=== PATIENT | female | born 1930 | race Caucasian/White ===

== ENCOUNTER 2018-06-08 13:52 | Inpatient (IN) | payer MEDICARE, BC ==
[~2018-06-08] VITALS: Ht 167.6 cm; Wt 58.1 kg
[2018-06-08] MEDS ORDERED: ALENDRONATE SOD35 MG PO (15:10)
[2018-06-08] MEDS ORDERED: DILANTIN100 MG PO ×2 (15:13→15:15)
[2018-06-08] MEDS ORDERED: TENORMIN25 MG PO (15:20)
[2018-06-08] MEDS ORDERED: ZOCOR20 MG PO (15:20)
[2018-06-08] MEDS ORDERED: THERMOTABS 1 GM1 GM PO (15:21)
[2018-06-08] MEDS ORDERED: SENNA LAXATIVE8.6 MG PO (15:22)
[2018-06-08] MEDS ORDERED: HYDROCODON-ACE1 EA10 PO (15:22)
[2018-06-08] MEDS ORDERED: AGGRENOX 200/251 CAP PO (15:24)
[2018-06-08] MEDS ORDERED: LEXAPRO20 MG PO (15:28)
[2018-06-08] MEDS ORDERED: CYCLOSPORINE EACH EYE (15:28)
[2018-06-08] MEDS ORDERED: MECLIZINE HCL12.5 MG PO (15:28)
[2018-06-08] MEDS ORDERED: GERITOL TONIC PO (15:31)
[2018-06-08 16:19] LABS: BASOPHILS 0.4 % (0-2); EOSINOPHILS 10.9 % (0-7); HEMATOCRIT 39.8 % (36.0-48.0); HEMOGLOBIN 13.5 g/dL (12-16); IMMATURE GRANULOCYTES 0.2 % (0-5); LYMPHOCYTES 23.8 % (15-50); MCH 33.9 pg (26.0-34.0); MCHC 33.9 g/dL (31.0-37.0); MONOCYTES 12.3 % (2-11); NEUTROPHILS 52.4 % (40-80); PLATELET COUNT 239 10x3/uL (130-400); RBC 3.98 10x6/uL (4.00-5.40); RDW 12.8 % (11.5-14.5); WBC 4.9 10x3/uL (4.8-10.8)
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
[2018-06-08 16:39] LABS: ALBUMIN 3.2 g/dL (3.4-5.0); ALKALINE PHOSPHATASE 143 U/L (46-116); ALT (SGPT) 17 U/L (10-68); BILIRUBIN - TOTAL 0.19 mg/dL (0.2-1.3); CALC OSMOLALITY 265 mosm/kg (275-300); CALCIUM 7.8 mg/dL (8.5-10.1); CHLORIDE - SERUM 99 mmol/L (98-107); CHOL - HDL RATIO 2.3 ratio (2.3-4.1); CHOLESTEROL, TOTAL 179 mg/dL (0-200); CREATININE - SERUM 0.7 mg/dL (0.6-1.3); GLUCOSE 100 mg/dL (74-106); HDL CHOLESTEROL 77 mg/dL (32-96); LDL CHOLESTEROL 92 mg/dL (0-100); LDL-HDL RATIO 1.2 ratio (1.5-3.5); PHENYTOIN (DILANTIN) 8.8 ug/mL (10.0-20.0); POTASSIUM - SERUM 3.9 mmol/L (3.5-5.1); PROTEIN - SERUM 6.7 g/dL (6.4-8.2); SODIUM 133 mmol/L (136-145); THYROID STIMULATING HORMONE 2.91 uIU/mL (0.36-3.74); TRIGLYCERIDE 52 mg/dL (30-200); UREA NITROGEN 12 mg/dL (7-18); eGFR NON AFRICAN AMERICAN 84 mL/min (90-120)
[2018-06-08 17:29] LABS: APPEARANCE CLEAR (CLEAR); BILIRUBIN NEGATIVE (NEGATIVE); COLOR YELLOW (YELLOW); GLUCOSE NEGATIVE (NEGATIVE); KETONE NEGATIVE (NEGATIVE); NITRITE NEGATIVE (NEGATIVE); PROTEIN TRACE mg/dL (NEGATIVE); UROBILINOGEN NORMAL (NORMAL)
--- NOTE | 2018-06-08 18:00 | NUR ---
VERY PLEASANT AND COOPERATIVE WITH STAFF AND PEERS.NO SIGNS OF AGGRESSION.LEFT JAW AND CHEEK HAVE VERY LARGE YELLOW AND PURPLISH BRUISING,LEFT BREAST COVERED IN DARK,PURPLISH BRUISING.LEFT ELBOW HAS SMALL PURPLISH BRUISE AND SMALL SCAB.WHEN QUESTIONED HOW SHE GOT ALL THESE BRUISES SHE REPORTS SHE DOES NOT KNOW.DENIES REMEMBERING PUTTING HAND ON ROOMMATES FACE OR FALLING ON FLOOR.WILL INITIATE PLAN OF CARE,MONITOR FOR CHANGES AND SAFETY.
[2018-06-08 20:36] VITALS: BP 140/70
--- NOTE | 2018-06-08 21:37 | NUR ---
PATIENT GIVEN PRN NORCO 10 FOR BACK PAIN 8 OF 10, AT 2130.
--- NOTE | 2018-06-09 01:37 | NUR ---
B) Patient is alert and oriented to person and place, complained of back pain I) Administered scheduled medications as ordered, monitored for behaviors, R) Mediation compliant, no behaviors noted, P) Continue plan of care.
[2018-06-09 03:57] VITALS: BP 140/70
[2018-06-09 09:20] VITALS: BP 127/65
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
--- NOTE | 2018-06-09 17:40 | NUR ---
The patient said "I didn't get a dinner roll." Asked her if she would like one. She said she would. Staff also gave her one that another patient did not want and she said "This is half eaten." Staff tried to explain that it is smashed in and looks different, but it is whole." She started to argue, but staff just said "OK."
--- NOTE | 2018-06-09 18:35 | NUR ---
The dinner roll came after the patient came. Stated to the patient that the dinner roll is here she ordered and she said "I didn't ask for one, I just said I didn't get one." She took the roll.
[2018-06-09 19:31] VITALS: BP 110/56
--- NOTE | 2018-06-09 20:58 | NUR ---
PATIENT IS CALM, STAYS TO HERSELF, SOMEWHAT FORGETFUL, HAS TO BE SHOWN TO HER ROOM, COMPLIANT WITH MEDS, NO ADVERSE SIDE EFFECTS. WILL FOLLOW POC
[2018-06-10 06:14] LABS: VITAMIN D 25 HYDROXY 9.6 ng/mL (30.0-100.0)
[2018-06-10 07:24] LABS: RAPID PLASMA REAGIN Non Reactive (Non Reactive)
[2018-06-10 08:12] VITALS: BP 107/74
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
[2018-06-10 20:22] VITALS: BP 134/73
[2018-06-11 07:00] VITALS: BP 143/84
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
[2018-06-11 19:26] VITALS: BP 144/67
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
[2018-06-12 07:00] VITALS: BP 148/87
--- NOTE | 2018-06-12 07:30 | NUR ---
PT ALERT X 3 WITH SOME CONFUSION NOTED. PT CALM AND COOPERATIVE WITH ASSESSMENT. REDIRECT AND REORIENT NEEDED. NO AGGRESSION NOTED. PRESCRIBED MEDS PROVIDED. MED COMPLIANT. FALL PRECAUTIONS IN PLACE. WILL CONTINUE TO MONITOR Q 15 MINUTES FOR SAFETY. WILL CPOC.
[2018-06-12 10:48] VITALS: Ht 167.6 cm; Wt 58.1 kg
--- NOTE | 2018-06-12 14:45 | PN ---
PATIENT:BAILEE MENDOZA MEDICAL RECORD: [id number] LOCATION:[facility] ADMISSION DATE: 06/08/18 PROGRESS NOTE DATE OF SERVICE: 06/11/2018 SUBJECTIVE: The patient's case was discussed with staff. She has no new complaint. OBJECTIVE: The patient denies intent to harm herself or others. She is taking her Aricept. She has no recollection of the events that happened in the [facility]. ASSESSMENT: No change in diagnoses. PLAN: Supportive and educational interventions were made. Long-term prognosis is guarded. TRANSINT:[id number] Voice Confirmation ID: [id number] DOCUMENT ID: [id number] BARBY NICOLE MD at 1445 CC: [id number] DICTATION DATE: 06/11/18 1233 DRY TRANSFER WORKER: 06/11/18 1514 ADM IN [id number] [place] [address]
--- NOTE | 2018-06-12 14:45 | PN ---
PATIENT:BAILEE MENDOZA MEDICAL RECORD: [id number] LOCATION:[facility] ADMISSION DATE: 06/08/18 PROGRESS NOTE DATE OF SERVICE: 06/10/2018 SUBJECTIVE: The patient's case was discussed with staff. She has no new complaint. OBJECTIVE: The patient is denying any thoughts of harming herself or others. She is showing no evidence of agitated or aggressive behavior. She is taking her medicines as prescribed. She has no recollection of the events that transpired prior to admission. ASSESSMENT: No change in diagnoses. PLAN: The patient will be started on Aricept to assist with her cognitive impairment. She will be monitored for clinical changes associated with its use. TRANSINT:[id number] Voice Confirmation ID: [id number] DOCUMENT ID: [id number] BARBY NICOLE MD at 1445 CC: [id number] DICTATION DATE: 06/10/18 1314 GARDENING MANAGER: 06/11/18 0004 ADM IN [id number] [place] [id number]
[2018-06-12 21:16] VITALS: BP 120/50
--- NOTE | 2018-06-13 00:02 | NUR ---
RECEIVED IN PATIENT ROOM. RSTING IN BED WITH EYES OPEN. CALM AND COOPERATIVE WITH CARE AND ASSESSMENT. NO SIGNS OF AGGRESSION. REDIRECT AND REORIENT NEEDED. RESTING IN BED WITH EYES CLOSED AT THIS TIME. CONTINUE PLAN OF CARE.
[2018-06-13 07:00] VITALS: BP 137/78
--- NOTE | 2018-06-13 07:30 | NUR ---
REC'D PT IN HALLWAY WITH PEERS. AWAKE AND ALERT. CALM AND COOPERATIVE WITH ASSESSMENT. REDIRECT AND REORIENT NEEDED. PRESCRIBED MEDS PROVIDED. MED COMPLIANT. NO AGGRESSION NOTED. FALL PRECAUTIONS IN PLACE. WILL CONTINUE TO MONITOR Q 15 MINUTES FOR SAFETY. WILL CPOC.
--- NOTE | 2018-06-13 15:38 | PN ---
PATIENT:BAILEE MENDOZA MEDICAL RECORD: [id number] LOCATION:[facility] ADMISSION DATE: 06/08/18 PROGRESS NOTE DATE OF SERVICE: 06/12/2018 SUBJECTIVE: The patient's case was discussed with staff. She has no new complaint. OBJECTIVE: The patient denies intent to harm herself or others. She is tolerating her medicines well. ASSESSMENT: No change in diagnoses. PLAN: Brief supportive and educational interventions were made. The patient has not been aggressive today. I anticipate she can be discharged soon if this level of improvement continues. TRANSINT:[id number] Voice Confirmation ID: [id number] DOCUMENT ID: [id number] BARBY NICOLE MD at 1538 CC: [id number] DICTATION DATE: 06/12/18 1457 AUTOMOBILE RELOCATION ENGINEER: 06/12/18 1856 ADM IN [id number] [place] [address]
--- NOTE | 2018-06-13 23:51 | NUR ---
RECEIVED IN PATIENT ROOM. RESTING IN BED WITH EYES OPEN. CALM AND COOPERATIVE WITH CARE AND ASSESSMENT. NO SIGNS OF AGGRESSION. REDIRECT AND REORIENT NEEDED. RESTING IN BED WITH EYES CLOSED AT THIS TIME. CONTINUE PLAN OF CARE.
--- NOTE | 2018-06-14 07:30 | NUR ---
REC'D PT IN HALLWAY WITH PEERS. PT CALM AND COOPERATIVE WITH ASSESSMENT. REDIRECT AND REORIENT NEEDED. PRESCRIBED MEDS PROVIDED. MED COMPLIANT. NO AGGRESSION NOTED AT THIS TIME. FALL PRECAUTIONS IN PLACE. WILL CONTINUE TO MONITOR Q 15 MINUTES FOR SAFETY. WILL CPOC.
[2018-06-14 08:23] VITALS: BP 125/71
--- NOTE | 2018-06-14 13:01 | PN ---
PATIENT:BAILEE MENDOZA MEDICAL RECORD: [id number] LOCATION:[facility] ADMISSION DATE: 06/08/18 PROGRESS NOTE DATE OF SERVICE: 06/13/2018 SUBJECTIVE: The patient's case was discussed with staff. She has no new complaint. OBJECTIVE: The patient is in good behavioral control. She has poor insight about her condition. She generally tolerates her medicines well. ASSESSMENT: Senile dementia of the Alzheimer's type with behavioral disturbances. PLAN: Current medicines have been reviewed and will be maintained. She has had no further psychotic symptoms. She has not been aggressive. TRANSINT:[id number] Voice Confirmation ID: [id number] DOCUMENT ID: [id number] BARBY NICOLE MD at 1301 CC: [id number] DICTATION DATE: 06/13/18 1613 GRINDER SET UP OPERATOR CENTERLESS: 06/13/18 1715 ADM IN [id number] [place] [id number]
[2018-06-14 19:50] VITALS: BP 124/63
--- NOTE | 2018-06-15 00:33 | NUR ---
B) Patient is alert and oriented to person, place and time, calm and cooperative with care and assessment, I) Admionistered scheduled medications as ordered, monitored for needs, R) Mediation compliant, pleasant and friendly [facility] staff, P) Continue plan of care.
--- NOTE | 2018-06-15 13:03 | PN ---
PATIENT:BAILEE MENDOZA MEDICAL RECORD: [id number] LOCATION:[facility] ADMISSION DATE: 06/08/18 PROGRESS NOTE DATE OF SERVICE: 06/14/2018 SUBJECTIVE: The patient is in good behavioral control. She is partially oriented. She has pretty limited insight about her situation. She has generally been cooperative. ASSESSMENT: No change in diagnoses. PLAN: Brief supportive and educational interventions were made. Long-term prognosis is guarded. I anticipate the patient can be transitioned out of the hospital soon. TRANSINT:[id number] Voice Confirmation ID: [id number] DOCUMENT ID: [id number] BARBY NICOLE MD at 1303 CC: [id number] DICTATION DATE: 06/14/18 1513 CABIN SERVICE AGENT: 06/15/18 0009 ADM IN [address] [place] [address]
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
[2018-06-15 19:56] VITALS: BP 111/64
--- NOTE | 2018-06-16 04:15 | NUR ---
B) Patient is alert and oriented to person and place, calm and cooperative, no aggression noted, I) Administered scheduled medications as ordered, monitored for safety and for needs, R) Mediation compliant, follow unit rules, P) Continue plan of care.
[2018-06-16 09:48] VITALS: BP 109/70
[2018-06-16 10:37] VITALS: BP 109/70
--- NOTE | 2018-06-16 10:54 | NUR ---
B) The patient is calm and pleasant, she has poor insight into her situation. She uses a walker to ambulate. She does have a faint bruise to the left side of her face, she also has a healing bruise to her left breast and she still has no recollection as to how she got the bruises. I) Provide prescribed meds. R) The patient is compliant with meds and she is interacting with staff and other patients. P) Continue POC.
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
--- NOTE | 2018-06-16 14:11 | NUR ---
Nutrition follow-up: Diet: Regular PO intake 75-100% of meals Labs reviewed Wt: 128# PO intake good at this time. RDN following.
[2018-06-16 20:15] VITALS: BP 122/65
--- NOTE | 2018-06-17 05:22 | NUR ---
B) Patient is alert and oriented X 3, calm and cooperative, pleasant and friendly toward staff, I) Administered scheduled medications as ordered, monitored for needs, R) Medication compliant, pleasant and quiet, P) Continue plan of care.
[2018-06-17 08:12] VITALS: BP 136/92
--- NOTE | 2018-06-17 08:39 | PN ---
PATIENT:BAILEE MENDOZA MEDICAL RECORD: [id number] LOCATION:[facility] ADMISSION DATE: 06/08/18 PROGRESS NOTE DATE OF SERVICE: 06/16/2018 SUBJECTIVE: The patient's case was discussed with staff. She has no new complaint. OBJECTIVE: The patient is in good behavioral control. She has poor insight about her condition. She has tolerated her medicines reasonably well. ASSESSMENT: No change in diagnoses. PLAN: The patient's Aricept is going to be increased to 10 mg at bedtime. She will be monitored for clinical changes associated with its use. Her long-term prognosis is guarded. TRANSINT:[id number] Voice Confirmation ID: [id number] DOCUMENT ID: [id number] BARBY NICOLE MD at 0839 CC: [id number] DICTATION DATE: 06/16/18 1529 PURSE MAKER: 06/16/18 2108 ADM IN [id number] [place] [address]
--- NOTE | 2018-06-17 10:18 | NUR ---
B) The patient is awake and alert, she is ambulating with her walker, she is upset because she says she has a pair of pants missing. She states she wants to go home, she says she is bored. I) Provide prescribed meds. R) The patient is compliant with meds and she has poor insight into her situation. She has not shown any aggression, she denies depression. P) Continue POC.
--- NOTE | 2018-06-17 11:45 | NUR ---
Did take the patient for a walk with four other patients in the hallway. She tolerated it well.
[2018-06-17 20:01] VITALS: BP 120/63
--- NOTE | 2018-06-18 03:59 | NUR ---
B) Patien is alert and oriented X 3, calm and cooperative, ambulates with her walker, social and friendly toward staff and peers, I) Administered scheduled medications as ordered, monitored for safety R) Mediation compliant, pleasant and friendly, follow unit milieu, P) Continue plan of care.
[2018-06-18 08:00] VITALS: BP 117/80
--- NOTE | 2018-06-18 09:45 | NUR ---
The patients feet are edematous 3+ left and 2+ right with pain in the middle of the top of her foot. Had the patient take off her shoes and put on slipper socks and tols her to elevate her feet. She is sitting away from others.
--- NOTE | 2018-06-18 11:00 | NUR ---
REPORT RECEIVED AND CARE ASSUMED. SITTING IN CHAIR WATCHING A MOVIE,
--- NOTE | 2018-06-18 11:37 | PN ---
PATIENT:BAILEE MENDOZA MEDICAL RECORD: [id number] LOCATION:[facility] ADMISSION DATE: 06/08/18 PROGRESS NOTE DATE OF SERVICE: 06/17/2018 SUBJECTIVE: The patient's case was discussed with staff. She has no new complaint. OBJECTIVE: The patient denies intent to harm herself or others. She tolerates her medicines well. Eye contact is fair. ASSESSMENT: No change in diagnoses. PLAN: Brief supportive and educational interventions were made. Long-term prognosis is guarded. TRANSINT:[id number] Voice Confirmation ID: [id number] DOCUMENT ID: [id number] BARBY NICOLE MD at 1137 CC: [id number] DICTATION DATE: 06/17/18 0842 NURSERY TECHNICIAN: 06/17/18 0856 ADM [id number] [place] [address]
[2018-06-18] MEDS ORDERED: Aricept PO (11:47)
[2018-06-18] MEDS ORDERED: Vitamin D PO (11:48)
[2018-06-18] MEDS ORDERED: VITAMIN B-121000 MCG PO (11:48)
[2018-06-18 19:28] VITALS: BP 132/68
--- NOTE | 2018-06-18 22:18 | NUR ---
PATIENT IS AWAKE, ALERT, NO AGGRESSION NOTED, COMPLIANT WITH MEDS, ABLE TO MAKE NEEDS KNOWN, NO ADVERSE REACTION NOTED. WILL FOLLOW POC
--- NOTE | 2018-06-19 13:00 | NUR ---
DISCHARGE PAPERWORK COMPLETED AND BELONGINGS PACKED AND SENT. LEFT [facility].
--- NOTE | 2018-06-19 15:58 | PN ---
PATIENT:BAILEE MENDOZA MEDICAL RECORD: [id number] LOCATION:[facility] ADMISSION DATE: 06/08/18 PROGRESS NOTE DATE OF SERVICE: 06/18/2018 SUBJECTIVE: The patient's case was discussed with staff. She has no new complaint. OBJECTIVE: The patient has no thoughts of harming herself or others. She has a near euthymic mood. She is tolerating her medicines well. ASSESSMENT: Senile dementia of the Alzheimer's type with behavioral disturbances. PLAN: The patient has shown no evidence of aggression and is, in my view, reasonably safe to be returned to the care home. Follow up should be with her primary care physician. Again, there is no evidence of dangerousness and I do not think she represents an acute risk to others. TRANSINT:[id number] Voice Confirmation ID: [id number] DOCUMENT ID: [id number] BARBY NICOLE MD at 1558 CC: [id number] DICTATION DATE: 06/18/18 1146 SEED LABORATORY TECHNICIAN: 06/18/18 1210 DIS IN 06/19/18 [facility] [address] [place] [address]
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
== END 2018-06-19 13:00 | DRG 57 ==
LOC: D.REHAB 13:52 → D.PSYCH 14:01
PROVIDERS: ADMIT Psychiatry & Neurology Psychiatry; ATTEND Psychiatry & Neurology Psychiatry
DX: G30.1 Alzheimer's disease with late onset (principal); F02.81 Dementia in other diseases classified elsewhere, unspecified severity, with behavioral disturbance; G40.909 Epilepsy, unspecified, not intractable, without status epilepticus; I10 Essential (primary) hypertension; E78.5 Hyperlipidemia, unspecified; I49.9 Cardiac arrhythmia, unspecified; K59.00 Constipation, unspecified; F41.8 Other specified anxiety disorders; E55.9 Vitamin D deficiency, unspecified; Z91.81 History of falling; Z86.73 Personal history of transient ischemic attack (TIA), and cerebral infarction without residual deficits